=== PATIENT | female | born 1965 | race African-American/Black ===

== ENCOUNTER 2017-04-26 12:30 | Emergency (ER) | payer SELFPAY ==
[~2017-04-26] VITALS: Ht 162.6 cm; Wt 100.0 kg
[~2017-04-26 12:30] MED LIST: CYCL-36 PO; DICL75 PO; DUONI NEB; FLUN25I; GUAI400T8 PO
[2017-04-26 12:31] VITALS: BP 164/93; PULSE 104; RESP 18; TEMP 98.8; O2SAT 98
[2017-04-26] MEDS ORDERED: CYCL10TA PO (12:58)
[2017-04-26] MEDS ORDERED: NORC5TAB (12:58)
[2017-04-26] MEDS ORDERED: CEPH500C PO (12:58)
--- NOTE | 2017-04-26 15:22 | PD ---
HPI . swelling in legs Chief Complaint: Abdominal Pain Time Seen by Provider: 13:37 Travel History International Travel<30 days: No Contact w/Intl Traveler<30days: No Traveled to known affect area: No History of Present Illness HPI 52 yo F presents to ED with cc of leg swelling and abdominal pain. She states she had a tummy tuck by Dr. Stoner in [place] 04/12/17 and had two drains placed on either side of her incision. She states her legs have been swollen since the surgery for which she has been wearing compression stockings. She had one drain removed last week in [place] and was instructed to return today for the removal of the second drain. Her abdominal pain is described as stretching pain 5/10 in the right groin that is worse with movement. It is relieved by applying pressure when coughing. She has tried a muscle relaxant and her prescription of hydrocodone-acetaminophen dispensed at the time of surgery without relief of the pain. When she informed the surgeons office that she would not make it down to [place] for drain removal and the abdominal pain accompanied by leg swelling she was informed to report to the ER for rule of out DVT. She requests that we remove the drain today in the ED. She denies any shortness of breath or difficulty breathing, palpitation or pain in her calfs. PFSH Past Medical History Cardiovascular Problems: Yes (HTN) Headaches: Yes (migraines) Hypertension: Yes ?: Not Past Surgical History Abdominal Surgery: Yes (tummy tuck, bowel obstruction) Appendectomy: Yes Gynecologic Surgery: Yes (oophorectomy) Hysterectomy: Yes Social History Alcohol Use: No Tobacco Use: No Substance Use: No Allergies-Medications (Allergen,Severity, Reaction): Coded Allergies: No Known Allergies (Unverified Adverse Reaction, Unknown, 04/26/17) Reported Meds & Prescriptions Reported Meds & Active Scripts Active Reported Flexeril (Cyclobenzaprine HCl) 10 Mg Tab 10 Mg PO HS Cephalexin 500 Mg Cap 500 Mg PO Q8H [place] 5-325 Tablet (Hydrocodone/Acetaminophen) 5 Mg-325 Mg Tablet Q6HR Review of Systems Except as stated in HPI: all other systems reviewed are Neg Cardiovascular: No: Chest Pain or Discomfort, Palpitations, Diaphoresis Respiratory: No: Shortness of Breath Gastrointestinal: Positive: Abdominal Pain, No: Nausea, Vomiting, Diarrhea Musculoskeletal: Positive: Edema Physical Exam Narrative General: middle aged female in no sign of acute distress Neuro: awake, alert and oriented. Skin: warm and dry with good color Cardiovascular: Regular rate and rhythm, no rubs, murmurs or gallops. Pulmonary: Clear to auscultation bilaterally. No wheezes, rales, rhonchi. Abdomen: bowel sounds all 4 quadrants. Tenderness to palpation in lower abdomen near right groin. Large abdominal bandage across lower abdomen. One drain in place on right draining serosanguineous fluid. Extremities: Bilateral pitting edema up to shins bilaterally. Extremities are equal in circumference and are similar in color without excessive warmth. Homans sign is negative bilaterally. Psych: Congruent mood and affect Data Data Last Documented VS Vital Signs Date Time Temp Pulse Resp B/P (MAP) Pulse Ox O2 Delivery O2 Flow Rate FiO2 04/26/17 16:00 79 18 139/75 (96) 97 Room Air 04/26/17 12:31 98.8 Orders Orders Us Leg Venous Doppler Bilat (04/26/17 14:38) MDM Medical Decision Making Medical Screen Exam Complete: Yes Emergency Medical Condition: Yes Differential Diagnosis DVT, post-operative swelling, cardiogenic peripheral edema Narrative Course Patient presented s/p danita de la o 04/12/17 in [place] with cc of leg swelling, pulling groin/lower abdominal pain and requesting removal of drain. There was concern over the possibility of a DVT when she called the surgeons office in [place]. She has bilateral leg swelling up to her for which she is wearing compression stockings. Bilateral lower extremity ultrasound was unremarkable. She was informed that she should return to the surgeons office for removal of the remaining drain Diagnosis Primary Impression: Leg edema Patient Instructions: General Instructions, Leg Edema (ED) Additional Instructions: Follow up with your surgeon in [place] for drain removal. Disposition: 01 DISCHARGE HOME Condition: Stable Sarah Christianson MD Apr 26, 2017 15:22
[2017-04-26 16:00] VITALS: BP 139/75; PULSE 79; RESP 18; O2SAT 97
--- NOTE | 2017-04-26 16:03 | RADRPT ---
EXAM DATE/TIME: 04/26/2017 15:11 [facility] COMPARISON: No previous studies available for comparison. INDICATIONS : Bilateral leg edema. MEDICAL HISTORY : Migraines. HTN. Bowel obstruction. SURGICAL HISTORY : Appendectomy.Hysterectomy. Tummy tuck. Oophorectomy. ENCOUNTER: Initial ACUITY: 2 weeks PAIN SCORE: 10/10 LOCATION: Bilateral leg. TECHNIQUE: Venous ultrasound of the left and right leg was performed from the inguinal ligament to the proximal calf. Real-time, color Doppler and spectral tracing, compression and augmentation techniques were us ed. FINDINGS: RIGHT LEG: There is normal compressibility of the deep venous system from the inguinal region to the proximal ca lf. No echogenic clot is seen in the lumen of the common femoral, femoral, popliteal, and posterior tibial veins. There is a normal response of the venous system to proximal and distal augmentation an d respiration. LEFT LEG: There is normal compressibility of the deep venous system from the inguinal region to the proximal ca lf. No echogenic clot is seen in the lumen of the common femoral, femoral, popliteal, and posterior tibial veins. There is a normal response of the venous system to proximal and distal augmentation an d respiration. CONCLUSION: No evidence of deep venous thrombosis within the lower extremities. José Antonio Gonsales MD on April 26, 2017 at 16:00 Board Certified Radiologist. This report was verified electronically.
== END 2017-04-26 16:59 | disposition home or self-care (01) ==
LOC: NEPD 12:30
DX: R60.0 Localized edema (principal); R10.9 Unspecified abdominal pain; I10 Essential (primary) hypertension
CPT/HCPCS: 93970